=== PATIENT | male | born 1970 | race Caucasian/White ===

== ENCOUNTER 2020-02-06 18:21 | Inpatient (IN) | payer OTHER ==
[2020-02-06] MEDS ORDERED: DIPH,PERTUS(ACELL)TETVAC-LF 0.5 ML VIAL IM ONE (18:46)
[2020-02-06] MEDS: SODIUM CHLORIDE 0.9% 500 ML 500 ML IV STA ×2 (18:53→20:27)
[2020-02-06 18:56] LABS: Basophils # (A) 0.1 k/uL (0-0.2); Basophils % (A) 1 %; Eosinophils # (A) 0.1 k/uL (0-0.7); Eosinophils % (A) 1 %; HCT 48.5 % (39.0-53.0); HGB 15.8 gm/dL (13.0-17.5); Lymphocytes # (A) 1.9 k/uL (1.0-4.8); Lymphocytes % (A) 21 %; MCH 34.9 pg (25.0-35.0); MCHC 32.5 g/dL (31.0-37.0); MCV 107.4 fL (80.0-100.0); Macrocytosis Moderate; Mean Platelet Volume 7.8; Monocytes # (A) 0.5 k/uL (0-1.0); Monocytes % (A) 6 %; Neutrophils # (A) 6.4 k/uL (1.3-7.7); Neutrophils % (A) 70 %; Platelet Count 192 k/uL (150-450); RBC 4.52 m/uL (4.30-5.90); RDW 12.8 % (11.5-15.5); WBC 9.1 k/uL (3.8-10.6)
[2020-02-06 19:05] LABS: ALT 221 U/L (4-49); AST 684 U/L (17-59); African American GFR (CKD) >90 (>60 ml/min/1.73 sqM); Albumin 4.4 g/dL (3.5-5.0); Alkaline Phosphatase 93 U/L (38-126); Anion Gap 10 mmol/L; Blood Urea Nitrogen 9 mg/dL (9-20); Calcium 8.6 mg/dL (8.4-10.2); Carbon Dioxide 22 mmol/L (22-30); Chloride 101 mmol/L (98-107); Glucose 99 mg/dL (74-99); Non-African American GFR(CKD) >90 (>60 ml/min/1.73 sqM); Potassium 5.6 mmol/L (3.5-5.1); Sodium 133 mmol/L (137-145); Total Bilirubin 1.1 mg/dL (0.2-1.3); Total Protein 7.2 g/dL (6.3-8.2)
[2020-02-06 19:10] LABS: Partial Thromboplastin Time 22.5 sec (22.0-30.0); Prothrombin Time 10.6 sec (9.0-12.0)
[2020-02-06 19:13] LABS: Alcohol 269 mg/dL
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
[2020-02-06] MEDS ORDERED: MORPHINE SULFATE 4 MG/ML SYRINGE IV STA (20:11)
[2020-02-06] MEDS ORDERED: SODIUM CHLORIDE 0.9% 1,000 ML IV ONE (20:23)
[2020-02-06] MEDS ORDERED: fentaNYL (PF) 50 MCG/ML 2 ML AMP IVP STA ×2 (20:27)
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
[2020-02-06] MEDS ORDERED: THIAMINE 100 MG/ML 2 ML VIAL IM STA (20:46)
[2020-02-06] MEDS ORDERED: LORazepam 2 MG/ML INJ IV PRN (20:46)
[2020-02-06 20:59] LABS: Appearance,Urine Clear (Clear); Bacteria,Urine Rare /hpf; Bilirubin,Urine Negative (Negative); Blood,Urine Moderate (Negative); Color,Urine Light Yellow; Glucose,Urine (UA) Negative (Negative); Ketones,Urine Negative (Negative); Leukocyte Esterase,Urine Negative (Negative); Nitrite,Urine Negative (Negative); PH, Urine 6.5 (5.0-8.0); Protein,Urine 1+ (Negative); RBC,Urine <1 /hpf (0-5); Specific Gravity,Urine 1.024 (1.001-1.035); Squamous Epithelial Cell,Urine <1 /hpf (0-4); Urobilinogen,Urine <2.0 mg/dL (<2.0); WBC,Urine 1 /hpf (0-5)
[2020-02-06] MEDS ORDERED: NALOXONE 0.4 MG/ML 1 ML VIAL IV PRN (21:03)
[2020-02-06 21:07] LABS: Amphetamine Screen,Urine Not Detected (NotDetected); Barbiturate Screen,Urine Not Detected (NotDetected); Benzodiazepines Screen,Urine Detected (NotDetected); Cocaine Screen,Urine Not Detected (NotDetected); Methadone Screen, Urine Not Detected (NotDetected); Opiate Screen,Urine Not Detected (NotDetected); Oxycodone Screen, Urine Not Detected (NotDetected); Phencyclidine Screen,Urine Not Detected (NotDetected); Tricyclic Antidepressant,Urine Not Detected (NotDetected); Urn Cannabinoid Scrn Not Detected (NotDetected)
[2020-02-06] MEDS ORDERED: DEXAMETHASONE SOD PHOSPHATE 10 MG/ML 1 ML VIAL IV PRN (22:00)
[2020-02-06 22:21] LABS: Basophils # (A) 0.1 k/uL (0-0.2); Basophils % (A) 0 %; Eosinophils % (A) 0 %; HCT 40.6 % (39.0-53.0); HGB 13.2 gm/dL (13.0-17.5); Lymphocytes # (A) 0.8 k/uL (1.0-4.8); Lymphocytes % (A) 7 %; MCH 34.7 pg (25.0-35.0); MCHC 32.4 g/dL (31.0-37.0); MCV 107.3 fL (80.0-100.0); Macrocytosis Moderate; Mean Platelet Volume 7.2; Monocytes # (A) 0.7 k/uL (0-1.0); Monocytes % (A) 6 %; Neutrophils # (A) 10.2 k/uL (1.3-7.7); Neutrophils % (A) 86 %; Platelet Count 213 k/uL (150-450); RBC 3.79 m/uL (4.30-5.90); RDW 12.4 % (11.5-15.5)
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
[2020-02-06] MEDS: SODIUM CHLORIDE 0.9% 1,000 ML IV SCH (23:40)
[2020-02-06] MEDS: THIAMINE 100 MG TAB PO SCH (23:40)
[2020-02-07 00:57] LABS: Glucose,Whole Blood 91 mg/dL (75-99)
[2020-02-07] MEDS: methocarbamoL 750 MG TAB PO SCH ×4 (01:58→22:42)
[2020-02-07] MEDS: HYDROmorphone 0.5 MG/0.5 ML SYRINGE IVP PRN ×4 (01:59→12:57)
[2020-02-07] MEDS: ACETAMINOPHEN TAB 500 MG TAB PO SCH ×5 (02:01→22:42)
[2020-02-07] MEDS: SODIUM CHLORIDE 0.9% 1,000 ML IV SCH ×2 (05:59→22:42)
[2020-02-07 06:06] LABS: ALT 165 U/L (4-49); AST 447 U/L (17-59); African American GFR (CKD) >90 (>60 ml/min/1.73 sqM); Albumin 3.4 g/dL (3.5-5.0); Alkaline Phosphatase 74 U/L (38-126); Anion Gap 9 mmol/L; Blood Urea Nitrogen 8 mg/dL (9-20); Calcium 7.8 mg/dL (8.4-10.2); Carbon Dioxide 19 mmol/L (22-30); Chloride 107 mmol/L (98-107); Glucose 95 mg/dL (74-99); Non-African American GFR(CKD) >90 (>60 ml/min/1.73 sqM); Potassium 4.7 mmol/L (3.5-5.1); Sodium 135 mmol/L (137-145); Total Bilirubin 0.7 mg/dL (0.2-1.3); Total Protein 5.8 g/dL (6.3-8.2)
[2020-02-07 06:21] LABS: Basophils # (A) 0.1 k/uL (0-0.2); Basophils % (A) 1 %; Eosinophils # (A) 0.1 k/uL (0-0.7); Eosinophils % (A) 1 %; HCT 41.4 % (39.0-53.0); HGB 13.4 gm/dL (13.0-17.5); Lymphocytes # (A) 0.7 k/uL (1.0-4.8); Lymphocytes % (A) 7 %; MCH 34.7 pg (25.0-35.0); MCHC 32.3 g/dL (31.0-37.0); MCV 107.7 fL (80.0-100.0); Macrocytosis Moderate; Mean Platelet Volume 7.9; Monocytes # (A) 0.6 k/uL (0-1.0); Monocytes % (A) 6 %; Neutrophils # (A) 8.9 k/uL (1.3-7.7); Neutrophils % (A) 86 %; Platelet Count 166 k/uL (150-450); RBC 3.85 m/uL (4.30-5.90); RDW 12.3 % (11.5-15.5); WBC 10.4 k/uL (3.8-10.6)
[2020-02-07] MEDS ORDERED: VANCOMYCIN 1,000 MG in SODIUM CHLORIDE 0.9% 250 ML IVPB STA (07:20)
[2020-02-07 07:36] LABS: Glucose,Whole Blood 105 mg/dL (75-99)
--- NOTE | 2020-02-07 08:00 | XR ---
EXAMINATION TYPE: XR chest 1V DATE OF EXAM: 02/07/2020 COMPARISON: None INDICATION: Presurgical clearance TECHNIQUE: Single frontal view of the chest is obtained. FINDINGS: The heart size is normal. The pulmonary vasculature is normal. The lungs are clear. IMPRESSION: 1. No acute pulmonary process.
[2020-02-07 08:19] LABS: Basophils # (A) 0.1 k/uL (0-0.2); Basophils % (A) 1 %; Eosinophils % (A) 0 %; HCT 38.9 % (39.0-53.0); HGB 12.8 gm/dL (13.0-17.5); Lymphocytes # (A) 1.7 k/uL (1.0-4.8); Lymphocytes % (A) 20 %; MCH 35.8 pg (25.0-35.0); MCV 108.5 fL (80.0-100.0); Macrocytosis Moderate; Mean Platelet Volume 6.9; Monocytes # (A) 0.6 k/uL (0-1.0); Monocytes % (A) 7 %; Neutrophils # (A) 5.9 k/uL (1.3-7.7); Neutrophils % (A) 71 %; Platelet Count 193 k/uL (150-450); RBC 3.58 m/uL (4.30-5.90); RDW 12.8 % (11.5-15.5); WBC 8.3 k/uL (3.8-10.6)
[2020-02-07] MEDS: THIAMINE 100 MG TAB PO SCH ×2 (08:28→22:42)
[2020-02-07 08:29] LABS: African American GFR (CKD) >90 (>60 ml/min/1.73 sqM); Anion Gap 5 mmol/L; Blood Urea Nitrogen 8 mg/dL (9-20); Calcium 7.6 mg/dL (8.4-10.2); Carbon Dioxide 25 mmol/L (22-30); Chloride 104 mmol/L (98-107); Glucose 91 mg/dL (74-99); Non-African American GFR(CKD) >90 (>60 ml/min/1.73 sqM); Potassium 4.6 mmol/L (3.5-5.1); Sodium 134 mmol/L (137-145)
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
--- NOTE | 2020-02-07 11:24 | MR ---
EXAMINATION TYPE: MR lumbar spine wo con DATE OF EXAM: 02/07/2020 COMPARISON: CT 02/06/2020 HISTORY: L4 burst fracture TECHNIQUE: Multiplanar, multisequence images of the lumbar spine were acquired. L1-L2: There is endplate discogenic marrow signal change, spondylosis. Superior endplate of L2 shows minimal depression, there is associated low signal on T2-weighted sequences, intermediate signal on T 1. L2-L3: Normal disc appearance without desiccation. No herniation, protrusion or disc bulging. No ca nal stenosis is present. Foramina are patent bilaterally. L3-L4: Posterior extension of superior endplate of L4 into the spinal canal. No foraminal compromise. L4-L5: Normal disc appearance without desiccation. No herniation, protrusion or disc bulging. No ca nal stenosis is present. Foramina are patent bilaterally. L5-S1: Minimal posterior disc bulge, loss of disc height signal is present, there is mild spondylosis , no significant foraminal encroachment or spinal stenosis. Comminuted L4 vertebral burst fracture with retropulsion and resulting spinal stenosis is again ident ified as described on CT. L4 transverse process fractures are also again seen. Mass effect is noted o n the nerve roots at this level, conus shows an unremarkable appearance. Fracture extends into the re gion of the spinous process, a CT scan for improved bone detail. Increased signal on T2-weighted sequences present within the psoas muscles likely reflect edema. IMPRESSION: Burst fracture at L4 is noted on CT. Superior endplate fracture of L2 with minimal depression, no ret ropulsion. See report of CT scan. Mild degenerative disc disease. Additional findings above.
--- NOTE | 2020-02-07 12:31 | ECHOF ---
Referral Reason:elevated troponin MEASUREMENTS -------- HEIGHT: 170.2 cm WEIGHT: 73.0 kg BP: 112/72 RVIDd: 3.2 cm (< 3.3) IVSd: 1.1 cm (0.6 - 1.1) LVIDd: 3.8 cm (3.9 - 5.3) LVPWd: 1.3 cm (0.6 - 1.1) IVSs: 1.3 cm LVIDs: 2.3 cm LVPWs: 1.6 cm LAESV Index (A-L): 25.00 ml/m Ao Diam: 2.9 cm (2.0 - 3.7) AV Cusp: 2.0 cm (1.5 - 2.6) MV EXCURSION: 16.396 mm (> 18.000) MV EF SLOPE: 147 mm/s (70 - 150) EPSS: 0.3 cm MV E Bacilio: 0.65 m/s MV DecT: 327 ms MV A Bacilio: 0.78 m/s MV E/A Ratio: 0.83 RAP: 5.00 mmHg RVSP: 41.99 mmHg FINDINGS -------- This was a technically good study. The left ventricular size is normal. There is borderline concentric left ventricular hypertrophy. Overall left ventricular systolic function is normal with, an EF between 55 - 60 %. The diastolic filling pattern is normal for the age of the patient 7.63. The right ventricle is normal in size. Normal LA size by volume 22+/-6 ml/m2. The right atrial size is normal. Interatrial and interventricular septum intact. There is no evidence of aortic regurgitation. There is no evidence of aortic stenosis. No mitral regurgitation. [id number] tricuspid regurgitation present. There is mild to moderate pulmonary hypertension. The right ventricular systolic pressure, as measured by Doppler, is 41.99mmHg. There is no pulmonic regurgitation present. The aortic root size is normal. Normal inferior vena cava with normal inspiratory collapse consistent with estimated right atrial pre ssure of 5 mmHg. There is no pericardial effusion. CONCLUSIONS -------- 1. The left ventricular size is normal. 2. There is borderline concentric left ventricular hypertrophy. 3. Overall left ventricular systolic function is normal with, an EF between 55 - 60 %. 4. The diastolic filling pattern is normal for the age of the patient 7.63 5. [id number] tricuspid regurgitation present. 6. There is mild to moderate pulmonary hypertension. 7. The right ventricular systolic pressure, as measured by Doppler, is 41.99mmHg. ENGROSSER: Rupinder Kaur RDCS
[2020-02-07] MEDS ORDERED: HYDROmorphone (PF) 1 MG/ML ONE (13:53)
[2020-02-07] MEDS ORDERED: HEPARIN SODIUM,PORCINE 10,000 UNIT/ML 1 ML VIAL ONE (13:53)
[2020-02-07] MEDS ORDERED: PROPOFOL 10 MG/ML 20 ML VIAL IV ONE (13:53)
[2020-02-07] MEDS ORDERED: SUCCINYLCHOLINE CHLORIDE VIAL 200 MG/10 ML VIAL IV ONE (13:53)
[2020-02-07] MEDS ORDERED: KETAMINE 10 MG/ML 20 ML VIAL ONE (13:53)
[2020-02-07] MEDS ORDERED: SODIUM CHLORIDE 0.9% 100 ML BAG ONE (13:53)
[2020-02-07] MEDS ORDERED: LIDOCAINE 1% INJ 10MG/ML (20 ML MDV) ONE (13:53)
[2020-02-07] MEDS ORDERED: MIDAZOLAM 2 MG/2 ML VIAL ONE (13:53)
[2020-02-07] MEDS ORDERED: SODIUM CHLORIDE 0.9% IRRIG 1,000 ML BTL IRRIGATION ONE (13:53)
[2020-02-07] MEDS ORDERED: TRANEXAMIC ACID 1,000 MG/10 ML VIAL ONE (13:53)
[2020-02-07] MEDS ORDERED: fentaNYL (PF) 50 MCG/ML 2 ML AMP ONE (13:53)
[2020-02-07] MEDS ORDERED: ROCURONIUM BROMIDE 10 MG/ML 5 ML VIAL IV ONE (13:53)
[2020-02-07] MEDS ORDERED: NEOSTIGMINE 1 MG/ML 10 ML VIAL ONE (13:53)
[2020-02-07] MEDS ORDERED: GLYCOPYRROLATE 0.2 MG/ML 2 ML VIAL ONE (13:53)
[2020-02-07] MEDS ORDERED: IV FLUID CONTINUATION 1,000 ML IV ONE (13:58)
[2020-02-07] MEDS ORDERED: TRANEXAMIC ACID 1,000 MG in SODIUM CHLORIDE 0.9% 100 ML IVPB ONE ×2 (14:20→14:21)
--- NOTE | 2020-02-07 14:23 | P.ANPRN ---
Procedure Note - Anesthesia - Invasive Line Right Central Line Time Out Performed: Yes Date of Procedure: 02/07/20 Time of Procedure: 13:05 (ICU) Preparation: Sterile Prep, Sterile Dressing Ultrasound Used: Yes Purpose - Visualization and Identification of Vasculature: Yes Image Stored and Saved: Yes Narrative: Central line placement per sterile protocol utilized.
--- NOTE | 2020-02-07 14:24 | P.ANPRN ---
Procedure Note - Anesthesia - Invasive Line Right Arterial Line Time Out Performed: Yes Date of Procedure: 02/07/20 Time of Procedure: 13:20 (ICU) Preparation: Sterile Prep, Sterile Dressing Arterial Line Location: Radial Ultrasound Used: Yes Purpose - Visualization and Identification of Vasculature: Yes Image Stored and Saved: Yes Narrative: Central line placement per sterile protocol utilized.
[2020-02-07] MEDS ORDERED: LACTATED RINGERS 1,000 ML IV ONE ×3 (14:44→17:55)
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
[2020-02-07] MEDS ORDERED: THROMBIN (BOVINE) 5,000 UNIT VIAL TOPICAL ONE (15:09)
[2020-02-07] MEDS ORDERED: BUPIVACAINE (PF) 0.25% 30 ML VIAL SQ ONE (15:09)
[2020-02-07] MEDS ORDERED: GELATIN SPONGE,ABSORB (LARGE) 1 EACH SPONGE TOPICAL ONE (15:10)
--- NOTE | 2020-02-07 15:24 | P.PN ---
Progress Note - Text Patient was in the OR for a long period of time will revisit for evaluation tomorrow
[2020-02-07] MEDS ORDERED: VANCOMYCIN 1,000 MG VIAL MISCELLANE ONE (19:13)
[2020-02-07] MEDS ORDERED: ONDANSETRON 4 MG/2 ML VIAL IVP ONE (19:34)
[2020-02-07] MEDS ORDERED: SENNOSIDES 8.6 MG TAB PO PRN (19:39)
--- NOTE | 2020-02-07 19:48 | XR ---
EXAMINATION TYPE: XR lumbar spine 2 or 3V DATE OF EXAM: 02/07/2020 COMPARISON: NONE HISTORY: Surgery TECHNIQUE: 7 views FINDINGS: A series of 7 fluoroscopic images of the lumbar spine show placement of rods and screws fus ing posteriorly lumbar spine from L2 to S1. There is comminuted burst fracture of the L4 vertebral lino dy. IMPRESSION: Posterior multilevel fusion surgery. No complicating process seen.
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
[2020-02-07] MEDS: HYDROmorphone 2 MG/ML 1 ML SYRINGE IVP ONE ×2 (20:00→20:09)
--- NOTE | 2020-02-07 20:11 | P.PN ---
Progress Note - Text Progress Note Date: 02/07/20 Patient was seen and examined in the postoperative care unit. He was awake and following commands. He was moving all 4 extremities with good strength. Patient has 5 out of 5 strength in plantar flexion, dorsiflexion, EHL, FHL. He has 3+ strength 5 of knee flexion and extension secondary to pain. He has 3+ to 4 minus strength in hip flexion bilaterally. He states sensation is intact to light touch. Vital signs pulse 87, blood pressure 165/64, pulse ox 95% on nonrebreather 2 L. Patient will return to the ICU. Once awake and stable per the anesthesia department evaluation.
[2020-02-07] MEDS: HYDROmorphone 1 MG/ML 1 ML SYRINGE IVP PRN (22:44)
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
[2020-02-07] MEDS: DEXAMETHASONE SOD PHOSPHATE 4 MG/ML 1 ML VIAL IV SCH (22:55)
--- NOTE | 2020-02-07 23:10 | CT ---
EXAMINATION TYPE: CT lumbar spine wo con DATE OF EXAM: 02/07/2020 COMPARISON: 02/06/2020 HISTORY: post-op lumbar sx CT DLP: 1266.6 mGycm Automated exposure control for dose reduction was used. Images were obtained from the level of T11-S3 vertebra without contrast. Vertebra have normal alignment. There is posterior fusion surgery from L2 to L5. There are posterior skin faby. There is burst fracture of the L4 vertebral body with fragment extension posteriorly in to the spinal canal. There is laminectomy defect of L4. The sacroiliac joints appear intact. There is 25% compression deformity of the comminuted L4 vertebral body fracture. There is bilateral fluid in the retroperitoneal pararenal space. There is no retroperitoneal adenopathy. IMPRESSION: Posterior fusion surgery. No complicating process seen of the spine. Laminectomy defect. Posterior fr agment extension into the spinal canal up to 11 mm. Unchanged. Retroperitoneal bilateral fluid consistent with some retroperitoneal hemorrhage that appears new comp ared to CT scan yesterday..
[2020-02-07] MEDS: LORazepam 2 MG/ML INJ IV PRN (23:43)
[2020-02-08] MEDS: DEXAMETHASONE SOD PHOSPHATE 4 MG/ML 1 ML VIAL IV SCH ×4 (01:35→20:27)
[2020-02-08] MEDS: HYDROmorphone 1 MG/ML 1 ML SYRINGE IVP PRN ×5 (02:11→20:27)
[2020-02-08] MEDS ORDERED: ACETAMINOPHEN TAB 500 MG TAB PO PRN (04:55)
[2020-02-08 05:01] LABS: Basophils % (A) 0 %; Eosinophils % (A) 0 %; HCT 37.2 % (39.0-53.0); HGB 12.1 gm/dL (13.0-17.5); Lymphocytes # (A) 0.5 k/uL (1.0-4.8); Lymphocytes % (A) 5 %; MCH 34.4 pg (25.0-35.0); MCHC 32.5 g/dL (31.0-37.0); MCV 105.7 fL (80.0-100.0); Macrocytosis Moderate; Mean Platelet Volume 7.8; Monocytes # (A) 0.5 k/uL (0-1.0); Monocytes % (A) 6 %; Neutrophils % (A) 88 %; Platelet Count 135 k/uL (150-450); RBC 3.52 m/uL (4.30-5.90); RDW 15.1 % (11.5-15.5); WBC 9.1 k/uL (3.8-10.6)
[2020-02-08] MEDS: SODIUM CHLORIDE 0.9% 1,000 ML IV SCH ×3 (05:01→20:33)
[2020-02-08] MEDS: LORazepam 2 MG/ML INJ IV PRN ×2 (05:08→21:47)
[2020-02-08 05:14] LABS: African American GFR (CKD) >90 (>60 ml/min/1.73 sqM); Anion Gap -1 mmol/L; Blood Urea Nitrogen 6 mg/dL (9-20); Calcium 7.2 mg/dL (8.4-10.2); Carbon Dioxide 27 mmol/L (22-30); Chloride 106 mmol/L (98-107); Glucose 133 mg/dL (74-99); Non-African American GFR(CKD) >90 (>60 ml/min/1.73 sqM); Potassium 4.2 mmol/L (3.5-5.1); Sodium 132 mmol/L (137-145)
[2020-02-08] MEDS: THIAMINE 100 MG TAB PO SCH ×2 (06:58→15:13)
[2020-02-08] MEDS: NICOTINE 21MG/24HR PATCH TRANSDERM SCH (06:58)
[2020-02-08] MEDS: polyethylene glycoL 3350 17 GM POWD.PACK PO SCH ×2 (08:53→08:54)
[2020-02-08] MEDS: methocarbamoL 750 MG TAB PO SCH ×3 (08:53→20:27)
--- NOTE | 2020-02-08 10:15 | P.PN ---
Progress Note - Text Progress Note Date: 02/08/20 S: Patient seen and examined this morning. He is awake and alert and doing fairly well. He attempted to get up earlier this morning, but was having quite a bit of pain and was only able to mildly dangle his legs at the bedside. He states he is feeling better in his legs. However. He states his back is sore. He denies any numbness or tingling that is new. He denies any perineal numbness or tingling. He can still feel the Salcido in place. He denies any fevers, chills shortness of breath or chest pain at this time. Vital signs: Are stable. Patient is afebrile General: Patient is alert and oriented and able to answer all questions appropriately. Motor exam: Patient has 5 over 5 strength in dorsiflexion, plantar flexion, EHL and FHL bilaterally. He has 3+ to 4 minus strength in knee flexion and extension bilaterally. He has 3+ over 5 strength in hip flexion bilaterally. Sensation is intact to light touch in the L2 to S1 nerve distribution He has palpable distal pulses. No edema. Incision: Incision is clean, dry and intact. Dressing is intact and drain is intact. Drain: 150 mL overnight Laboratory Results - Last 24 Hours 02/06/20 02/07/20 02/07/20 18:51 09:47 09:47 WBC RBC Hgb Hct MCV MCH MCHC RDW Plt Count Neutrophils % Lymphocytes % Monocytes % Eosinophils % Basophils % Neutrophils # Lymphocytes # Monocytes # Eosinophils # Basophils # Macrocytosis Sodium Potassium Chloride Carbon Dioxide Anion Gap BUN Creatinine Est GFR (CKD-EPI)AfAm Est GFR (CKD-EPI)NonAf Glucose Calcium Troponin I 0.043 H* Serum Alcohol <10 Blood Type O Positive Blood Type Recheck No Previous Record Bld Type Recheck Status CABO Indicated Antibody Screen NEGATIVE Crossmatch See Detail Spec Expiration Date 02/09/2020 - 234902/08/20 02/08/20 04:43 04:43 WBC 9.1 RBC 3.52 L Hgb 12.1 L Hct 37.2 L MCV 105.7 H MCH 34.4 MCHC 32.5 RDW 15.1 Plt Count 135 L Neutrophils % 88 Lymphocytes % 5 Monocytes % 6 Eosinophils % 0 Basophils % 0 Neutrophils # 8.0 H Lymphocytes # 0.5 L Monocytes # 0.5 Eosinophils # 0.0 Basophils # 0.0 Macrocytosis Moderate Sodium 132 L Potassium 4.2 Chloride 106 Carbon Dioxide 27 Anion Gap -1 BUN 6 L Creatinine 0.72 Est GFR (CKD-EPI)AfAm >90 Est GFR (CKD-EPI)NonAf >90 Glucose 133 H Calcium 7.2 L Troponin I Serum Alcohol Blood Type Blood Type Recheck Bld Type Recheck Status Antibody Screen Crossmatch Spec Expiration Date Vital Signs Temp 98.1 F 02/08/20 08:00 Pulse 101 H 02/08/20 09:00 Resp 14 02/08/20 09:00 BP 115/88 02/08/20 07:00 Pulse Ox 95 02/08/20 09:00 Intake & Output 02/07/20 02/08/20 02/08/20 18:59 06:59 18:59 Intake Total 3760 1437 309 Output Total 1760 1495 260 Balance 1999 49 Weight 77.6 kg Intake: IV 3450 1127 309 Sodium Chloride 0.9% 1, 700 900 300 000 ml @ 100 mls/hr IV . Q10H [facility] Rx#:[id number] Vancomycin 1,000 mg In 250 Sodium Chloride 0.9% 250 ml @ 250 mls/hr IVPB ONCE [facility] Rx#:[id number] pressure bag 27 9 Blood Product 310 310 Rc As-1 Unit 310 [id number] Rc As-1 Unit 310 [id number] Output: Drainage 150 60 Back 150 60 Urine 560 1265 200 Estimated Blood Loss 1200 80 Other: Voiding Method Indwelling Catheter Indwelling Catheter ABP, PAP, CO, CI - Last Documented Arterial Blood Pressure 127/72 RADIOGRAPHS: CT of the lumbar spine. Postoperatively his obtained and reviewed. All hardware is in good position. Decompression had been performed from L3 to L5. Partial L4 corpectomy is visible. There is good decompression of the thecal elements and spinal nerve roots with note tensioning on the cord remaining. No hematoma noted. See radiologic report. Impression: 49-year-old male postop day 1, status post L2 to S1 posterior lateral fusion with L3 to 5 decompression and partial L4 cart corpectomy secondary to L4 burst fracture, unstable Plan: 1. Aggressive ambulation protocol 2. Pain control 3. GI ppx 4. Start SQ heparin today 5. maintain drain 6. Trend labs, no need for transfusion at this time 7. Appreciate ICU management 8. PT/OT, goals for all meals out of bed and ambulation with assist. TLSO needed for ambulation 9. TEDs, SCDs 10. Diet as tolerated 11. No plans for further operative intervention at this time. Pt likely to need KRISTAL closer to home will await PT and OT recommendations.
--- NOTE | 2020-02-08 10:18 | FL ---
EXAMINATION TYPE: FL guidance operating room DATE OF EXAM: 02/07/2020 CLINICAL HISTORY: Low back pain. TECHNIQUE: Fluoroscopy. COMPARISON: MRI lumbar spine earlier in day. FINDINGS: Fluoroscopic guidance was provided during lumbar posterolateral decompression and fusion L 2-S1 procedure performed by Dr. Penn. A total of 2.41 minutes of fluoroscopic time was utilize d during the procedure and 7 spot intraoperative images are acquired. IMPRESSION: As Above.
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
[2020-02-08] MEDS: HEPARIN SODIUM,PORCINE 5,000 UNIT/ML 1 ML VIAL SQ SCH (15:13)
[2020-02-09] MEDS: HYDROmorphone 1 MG/ML 1 ML SYRINGE IVP PRN ×6 (00:25→23:08)
[2020-02-09] MEDS: LORazepam 2 MG/ML INJ IV PRN ×13 (00:25→23:08)
[2020-02-09] MEDS: DEXAMETHASONE SOD PHOSPHATE 4 MG/ML 1 ML VIAL IV SCH ×4 (03:19→20:19)
[2020-02-09] MEDS: HEPARIN SODIUM,PORCINE 5,000 UNIT/ML 1 ML VIAL SQ SCH ×2 (03:19→15:38)
[2020-02-09 06:26] LABS: Basophils % (A) 0 %; Eosinophils # (A) 0.1 k/uL (0-0.7); Eosinophils % (A) 1 %; HCT 31.7 % (39.0-53.0); HGB 10.6 gm/dL (13.0-17.5); Lymphocytes # (A) 0.7 k/uL (1.0-4.8); Lymphocytes % (A) 7 %; MCH 34.8 pg (25.0-35.0); MCHC 33.5 g/dL (31.0-37.0); MCV 103.7 fL (80.0-100.0); Macrocytosis Slight; Mean Platelet Volume 7.6; Monocytes # (A) 0.5 k/uL (0-1.0); Monocytes % (A) 5 %; Neutrophils # (A) 8.6 k/uL (1.3-7.7); Neutrophils % (A) 86 %; Platelet Count 130 k/uL (150-450); RBC 3.06 m/uL (4.30-5.90); RDW 14.3 % (11.5-15.5)
[2020-02-09 06:35] LABS: African American GFR (CKD) >90 (>60 ml/min/1.73 sqM); Anion Gap 2 mmol/L; Blood Urea Nitrogen 3 mg/dL (9-20); Carbon Dioxide 27 mmol/L (22-30); Chloride 104 mmol/L (98-107); Glucose 137 mg/dL (74-99); Non-African American GFR(CKD) >90 (>60 ml/min/1.73 sqM); Potassium 3.7 mmol/L (3.5-5.1); Sodium 133 mmol/L (137-145)
[2020-02-09] MEDS ORDERED: POTASSIUM CHLORIDE ER 20 MEQ TAB.ER PO SCH (07:00)
[2020-02-09] MEDS: NICOTINE 21MG/24HR PATCH TRANSDERM SCH (07:48)
[2020-02-09] MEDS: THIAMINE 100 MG TAB PO SCH ×2 (07:48→16:40)
[2020-02-09] MEDS: SODIUM CHLORIDE 0.9% 1,000 ML IV SCH ×2 (07:49→20:12)
[2020-02-09] MEDS: methocarbamoL 750 MG TAB PO SCH ×3 (07:49→20:19)
[2020-02-09] MEDS: polyethylene glycoL 3350 17 GM POWD.PACK PO SCH (07:49)
--- NOTE | 2020-02-09 08:28 | P.PN ---
Progress Note - Text Progress Note Date: 02/09/20 S: Patient seen and examined this morning is doing very well. He states he does have some pain in his back. The patient sustained a fall from standing that was witnessed in his room when he was up and about. By the nurse at 6 AM this morning he fell directly onto his buttock region. He states that his legs just became wobbly and he fell. He denies any increasing pain in his legs. He denies any new numbness, tingling or weakness. He states his legs are actually moving better today than they have been. He denies any changes in his bowel or bladder control. The patient still has a Salcido which will be DC'd today. We will obtain x-rays of his lumbar spine and AP and lateral, to evaluate for need of CT. O: General: Patient is alert and oriented and able to answer all questions appropriately. Motor exam: Patient has 5 over 5 strength in dorsiflexion, plantar flexion, EHL and FHL bilaterally. He has 3+ to 4 minus strength in knee flexion and extension bilaterally. He has 4- over 5 strength in hip flexion bilaterally. Sensation is intact to light touch in the L2 to S1 nerve distribution He has palpable distal pulses. No edema. Incision: Incision is clean, dry and intact. Dressing is intact and drain is intact. Drain: 270 cc in 24 hrs. Vital Signs - 24 hr 02/08/20 02/08/20 02/08/20 09:00 10:00 11:00 Temperature Pulse Rate 101 H 101 H 98 Respiratory 14 15 18 Rate Blood Pressure 113/74 O2 Sat by Pulse 95 97 95 Oximetry 02/08/20 02/08/20 02/08/20 12:00 13:00 14:00 Temperature 98.2 F Pulse Rate 104 H 101 H 101 H Respiratory 12 14 13 Rate Blood Pressure 116/79 125/86 119/79 O2 Sat by Pulse 93 L 94 L 93 L Oximetry 02/08/20 02/08/20 02/08/20 15:00 16:00 17:00 Temperature Pulse Rate 82 84 74 Respiratory 19 16 15 Rate Blood Pressure 111/80 118/83 116/85 O2 Sat by Pulse 93 L 97 98 Oximetry 02/08/20 02/08/20 02/08/20 20:00 21:00 22:00 Temperature 98.1 F Pulse Rate 78 80 87 Respiratory 17 17 17 Rate Blood Pressure 130/93 116/82 113/85 O2 Sat by Pulse 94 L 94 L 93 L Oximetry 02/08/20 02/08/20 02/09/20 23:00 23:11 00:00 Temperature 97.4 F L Pulse Rate 85 89 92 Respiratory 11 L 18 8 L Rate Blood Pressure 121/82 108/71 108/71 O2 Sat by Pulse 92 L 93 L 94 L Oximetry 02/09/20 02/09/20 02/09/20 01:00 02:00 03:00 Temperature Pulse Rate 75 84 82 Respiratory 6 L 10 L 17 Rate Blood Pressure 127/88 127/84 127/85 O2 Sat by Pulse 93 L 95 94 L Oximetry 02/09/20 02/09/20 02/09/20 04:00 05:00 06:00 Temperature 97.4 F L Pulse Rate 90 82 101 H Respiratory 17 10 L 28 H Rate Blood Pressure 129/89 106/57 108/66 O2 Sat by Pulse 89 L 91 L 95 Oximetry 02/09/20 07:00 Temperature Pulse Rate 86 Respiratory 12 Rate Blood Pressure 141/92 O2 Sat by Pulse 95 Oximetry Abnormal Lab Results 02/09/20 02/09/20 06:06 06:06 WBC 10.0 RBC 3.06 L Hgb 10.6 L Hct 31.7 L MCV 103.7 H MCH 34.8 MCHC 33.5 RDW 14.3 Plt Count 130 L Neutrophils % 86 Lymphocytes % 7 Monocytes % 5 Eosinophils % 1 Basophils % 0 Neutrophils # 8.6 H Lymphocytes # 0.7 L Monocytes # 0.5 Eosinophils # 0.1 Basophils # 0.0 Macrocytosis Slight Sodium 133 L Potassium 3.7 Chloride 104 Carbon Dioxide 27 Anion Gap 2 BUN 3 L Creatinine 0.64 L Est GFR (CKD-EPI)AfAm >90 Est GFR (CKD-EPI)NonAf >90 Glucose 137 H Calcium 8.0 L RADIOGRAPHS: XR of lumbar spine pending Impression: 49-year-old male postop day 2, status post L2 to S1 posterior lateral fusion with L3 to 5 decompression and partial L4 cart corpectomy secondary to L4 burst fracture, unstable Plan: 1. Aggressive ambulation protocol 2. Pain control 3. GI ppx 4. XR lumbar spine due to fall 5. maintain drain 6. Trend labs, no need for transfusion at this time 7. Appreciate ICU management 8. PT/OT, goals for all meals out of bed and ambulation with assist. TLSO needed for ambulation 9. TEDs, SCDs 10. Diet as tolerated 11. No plans for further operative intervention at this time. Pt likely to need KRISTAL closer to home will await PT and OT recommendations.
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
--- NOTE | 2020-02-09 11:10 | CT ---
EXAMINATION TYPE: CT lumbar spine wo con DATE OF EXAM: 02/09/2020 COMPARISON: Prior CT 02/07/2020 HISTORY: Fall Post Lumbar fusion pain CT DLP: 1060.6 mGycm Automated exposure control for dose reduction was used. An unenhanced CT of the lumbar spine was performed. Bone and soft tissue window settings are submitt ed as well as coronal and sagittal reconstructions. FINDINGS: There is no significant interval change. Patient is status post posterior fusion L2-S1, there is a bu rst fracture of L4 with retropulsed bone fragments as on prior exam. Superior endplate of L2 shows mi ld depression as on prior. Alignment is stable. Anterior cortex at S1 is mildly reduced by the transp edicular screws anteriorly. Graft material is present in the paraspinal locations posteriorly. Transv erse process fractures are stable at L4, L3, L2. Probable osteophyte laterally at L3 is mildly displa jania similar to prior exam, probable fracture. Multilevel laminectomies are present. There is an indwelling drain to the right of midline posteriorl y as on prior. Air is present within the surgical bed and is somewhat improved. Artifact is present d ue to the metallic hardware. There is some small amount of intra-abdominal hemorrhage noted as on sony or. Surgical faby are present along the skin. Within the subcutaneous fat there is some subcutaneo us emphysema with a small amount of fluid density likely postop seroma or ecchymosis. Small basilar e ffusions are present with associated atelectasis. IMPRESSION: Essentially stable findings, no acute fracture or subluxation
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
[2020-02-09] MEDS: HYDROmorphone 0.5 MG/0.5 ML SYRINGE IVP PRN (20:19)
[2020-02-09] MEDS ORDERED: HALOPERIDOL LACTATE 5 MG/ML 1 ML VIAL IVP PRN (23:55)
[2020-02-10] MEDS: LORazepam 2 MG/ML INJ IV PRN ×3 (00:05→03:32)
[2020-02-10] MEDS: DEXAMETHASONE SOD PHOSPHATE 4 MG/ML 1 ML VIAL IV SCH ×4 (02:07→20:26)
[2020-02-10] MEDS: SODIUM CHLORIDE 0.9% 1,000 ML IV SCH ×2 (02:08→16:07)
[2020-02-10] MEDS: HYDROmorphone 1 MG/ML 1 ML SYRINGE IVP PRN ×3 (03:23→18:32)
[2020-02-10] MEDS: HEPARIN SODIUM,PORCINE 5,000 UNIT/ML 1 ML VIAL SQ SCH ×2 (03:32→16:05)
[2020-02-10 05:12] LABS: Basophils % (A) 0 %; Eosinophils % (A) 0 %; HCT 28.7 % (39.0-53.0); HGB 9.8 gm/dL (13.0-17.5); Lymphocytes # (A) 0.7 k/uL (1.0-4.8); Lymphocytes % (A) 7 %; MCH 35.2 pg (25.0-35.0); MCV 103.5 fL (80.0-100.0); Macrocytosis Slight; Mean Platelet Volume 9.2; Monocytes # (A) 0.6 k/uL (0-1.0); Monocytes % (A) 6 %; Neutrophils # (A) 8.5 k/uL (1.3-7.7); Neutrophils % (A) 86 %; Platelet Count 169 k/uL (150-450); RBC 2.78 m/uL (4.30-5.90); RDW 14.4 % (11.5-15.5); WBC 9.9 k/uL (3.8-10.6)
[2020-02-10 05:31] LABS: African American GFR (CKD) >90 (>60 ml/min/1.73 sqM); Anion Gap 1 mmol/L; Blood Urea Nitrogen 6 mg/dL (9-20); Carbon Dioxide 29 mmol/L (22-30); Chloride 105 mmol/L (98-107); Glucose 118 mg/dL (74-99); Non-African American GFR(CKD) >90 (>60 ml/min/1.73 sqM); Potassium 3.6 mmol/L (3.5-5.1); Sodium 135 mmol/L (137-145)
[2020-02-10] MEDS ORDERED: Potassium Replacement Protocol 1 EACH MISC MISCELLANE PRN (05:32)
[2020-02-10] MEDS ORDERED: POTASSIUM CHLORIDE ER 20 MEQ TAB.ER PO SCH (06:00)
[2020-02-10] MEDS: THIAMINE 100 MG TAB PO SCH ×2 (06:06→18:32)
[2020-02-10] MEDS: NICOTINE 21MG/24HR PATCH TRANSDERM SCH (08:04)
[2020-02-10] MEDS: methocarbamoL 750 MG TAB PO SCH ×3 (08:04→20:26)
[2020-02-10] MEDS: polyethylene glycoL 3350 17 GM POWD.PACK PO SCH (08:05)
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
[2020-02-10] MEDS: HYDROmorphone 0.5 MG/0.5 ML SYRINGE IVP PRN (21:40)
[2020-02-11] MEDS: HYDROmorphone 1 MG/ML 1 ML SYRINGE IVP PRN (00:43)
[2020-02-11] MEDS: SODIUM CHLORIDE 0.9% 1,000 ML IV SCH ×2 (01:52→11:00)
[2020-02-11] MEDS: DEXAMETHASONE SOD PHOSPHATE 4 MG/ML 1 ML VIAL IV SCH ×4 (01:52→20:26)
[2020-02-11] MEDS: HEPARIN SODIUM,PORCINE 5,000 UNIT/ML 1 ML VIAL SQ SCH ×2 (03:38→17:03)
[2020-02-11] MEDS: THIAMINE 100 MG TAB PO SCH ×2 (07:06→17:03)
[2020-02-11 07:21] LABS: Basophils % (A) 0 %; Eosinophils % (A) 0 %; HCT 35.4 % (39.0-53.0); HGB 11.6 gm/dL (13.0-17.5); Lymphocytes # (A) 1.1 k/uL (1.0-4.8); Lymphocytes % (A) 12 %; MCH 34.2 pg (25.0-35.0); MCHC 32.9 g/dL (31.0-37.0); MCV 103.9 fL (80.0-100.0); Macrocytosis Slight; Mean Platelet Volume 7.6; Monocytes # (A) 0.6 k/uL (0-1.0); Monocytes % (A) 7 %; Neutrophils # (A) 7.6 k/uL (1.3-7.7); Neutrophils % (A) 80 %; Platelet Count 238 k/uL (150-450); RDW 13.8 % (11.5-15.5); WBC 9.5 k/uL (3.8-10.6)
[2020-02-11 07:27] LABS: ALT 60 U/L (4-49); AST 60 U/L (17-59); African American GFR (CKD) >90 (>60 ml/min/1.73 sqM); Albumin 3.5 g/dL (3.5-5.0); Alkaline Phosphatase 81 U/L (38-126); Anion Gap 5 mmol/L; Blood Urea Nitrogen 10 mg/dL (9-20); Calcium 8.7 mg/dL (8.4-10.2); Carbon Dioxide 26 mmol/L (22-30); Chloride 104 mmol/L (98-107); Glucose 115 mg/dL (74-99); Non-African American GFR(CKD) >90 (>60 ml/min/1.73 sqM); Potassium 3.7 mmol/L (3.5-5.1); Sodium 135 mmol/L (137-145); Total Bilirubin 0.8 mg/dL (0.2-1.3)
[2020-02-11] MEDS: NICOTINE 21MG/24HR PATCH TRANSDERM SCH (07:59)
[2020-02-11] MEDS: polyethylene glycoL 3350 17 GM POWD.PACK PO SCH (08:00)
[2020-02-11] MEDS: methocarbamoL 750 MG TAB PO SCH ×3 (08:05→21:46)
--- NOTE | 2020-02-11 09:09 | P.PN ---
Subjective Progress Note Date: 02/11/20 Principal diagnosis: L4 Burst Fx Patient seen and examined this morning, seems more lucid than he was previously. She was sitting up in his chair and doing well with this. The patient has been up to the bathroom. States he has been walking with a walker using his TLSO doing fairly well. He states that his legs feel better as well today than they have in the past. [place]cido is out. He denies any bowel or bladder incontinence. States she is able to urinate and have a bowel movement on his own. He denies any fevers, chills shortness of breath or chest pain at this time. Objective - Vital Signs Vital signs: Vital Signs Temp 97.9 F 02/11/20 08:00 Pulse 69 02/11/20 08:00 Resp 16 02/11/20 08:00 BP 151/99 02/11/20 08:00 Pulse Ox 93 L 02/11/20 08:00 Intake & Output 02/10/20 02/11/20 02/11/20 18:59 06:59 18:59 Intake Total 2300 1100 200 Output Total 1735 940 Balance 565 160 200 Weight 72.8 kg Intake: IV 1300 1100 200 Sodium Chloride 0.9% 1, 1300 1100 200 000 ml @ 100 mls/hr IV . Q10H [facility] Rx#:[id number] Oral 1000 Output: Drainage 60 40 Back 60 40 Urine 1675 900 Other: Voiding Method Urinal Urinal # Voids 1 # Bowel Movements 1 ABP, PAP, CO, CI - Last Documented Arterial Blood Pressure 111/60 - Exam Vital signs stable. See below Alert and oriented 3, appears well-nourished, well-hydrated is in no acute distress Negative Babinski's No clonus Negative Alize's 5\5 strength in dorsiflexion, plantar flexion, EHL, FHL, the right lower extremity and left lower extremity 4/5 motor strength in hip flexion bilaterally Sensation intact to light touch and pain and L2 S1 nerve distribution Incision is clean and dry. Drain is in place. Minimal output No edema. Negative Ruth's - Labs CBC & Chem 7: 02/11/20 06:47 02/11/20 06:47 Labs: Abnormal Lab Results - Last 24 Hours (Table) 02/11/20 02/11/20 Range/Units 06:47 06:47 RBC 3.40 L (4.30-5.90) m/uL Hgb 11.6 L (13.0-17.5) gm/dL Hct 35.4 L (39.0-53.0) % MCV 103.9 H (80.0-100.0) fL Sodium 135 L (137-145) mmol/L Glucose 115 H (74-99) mg/dL AST 60 H (17-59) U/L ALT 60 H (4-49) U/L Total Protein 6.0 L (6.3-8.2) g/dL Assessment and Plan Assessment: Impression: 49-year-old male postop day 4, status post L2 to S1 posterior lateral fusion with L3 to 5 decompression and partial L4 cart corpectomy secondary to L4 burst fracture, unstable Plan: Plan: 1. Aggressive ambulation protocol 2. Pain control 3. GI ppx 4. DC drain today 5. Appreciate ICU management, pt suffering DTs 6. PT/OT, goals for all meals out of bed and ambulation with assist. TLSO needed for ambulation 7. TEDs, SCDs 8. Diet as tolerated 9. KRISTAL vs home when stable.
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
[2020-02-11] MEDS: ACETAMINOPHEN TAB 500 MG TAB PO SCH (19:12)
[2020-02-12] MEDS: HEPARIN SODIUM,PORCINE 5,000 UNIT/ML 1 ML VIAL SQ SCH (02:57)
[2020-02-12] MEDS: DEXAMETHASONE SOD PHOSPHATE 4 MG/ML 1 ML VIAL IV SCH ×2 (02:57→08:15)
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
[2020-02-12] MEDS: THIAMINE 100 MG TAB PO SCH (08:16)
[2020-02-12] MEDS: methocarbamoL 750 MG TAB PO SCH (08:16)
[2020-02-12] MEDS: polyethylene glycoL 3350 17 GM POWD.PACK PO SCH (08:16)
[2020-02-12] MEDS: NICOTINE 21MG/24HR PATCH TRANSDERM SCH (08:16)
[2020-02-12 11:30] VITALS: BP 133/77; PULSE 74; RESP 20; TEMP 98.2
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
== END 2020-02-12 16:09 | disposition home health service (06) | DRG 460 ==
LOC: EC 18:21 → 2SICU 02-07 → EC 02-07 01:01 → 6NMEDSUR 02-11 15:46
PROVIDERS: ADMIT Orthopaedic Surgery; ATTEND Orthopaedic Surgery
PROC: 4A133B1 Monitoring of Arterial Pressure, Peripheral, Percutaneous Approach (ICD-10-PCS; 2020-02-07)
PROC: 02HV33Z Insertion of Infusion Device into Superior Vena Cava, Percutaneous Approach (ICD-10-PCS; 2020-02-07)
PROC: 4A133J1 Monitoring of Arterial Pulse, Peripheral, Percutaneous Approach (ICD-10-PCS; 2020-02-07)
PROC: 03HY32Z Insertion of Monitoring Device into Upper Artery, Percutaneous Approach (ICD-10-PCS; 2020-02-07)
PROC: 0SG3071 Fusion of Lumbosacral Joint with Autologous Tissue Substitute, Posterior Approach, Posterior Column, Open Approach (ICD-10-PCS; principal; 2020-02-07 11:40)
PROC: 01NB0ZZ Release Lumbar Nerve, Open Approach (ICD-10-PCS; principal; 2020-02-07 11:40)
PROC: 0QS004Z Reposition Lumbar Vertebra with Internal Fixation Device, Open Approach (ICD-10-PCS; principal; 2020-02-07 11:40)
PROC: 00QT0ZZ Repair Spinal Meninges, Open Approach (ICD-10-PCS; principal; 2020-02-07 11:40)
PROC: 0SG1071 Fusion of 2 or more Lumbar Vertebral Joints with Autologous Tissue Substitute, Posterior Approach, Posterior Column, Open Approach (ICD-10-PCS; principal; 2020-02-07 11:40)
PROC: 0SB20ZZ Excision of Lumbar Vertebral Disc, Open Approach (ICD-10-PCS; principal; 2020-02-07 11:40)
DX: S32.042A Unstable burst fracture of fourth lumbar vertebra, initial encounter for closed fracture (principal); S22.22XA Fracture of body of sternum, initial encounter for closed fracture; E87.1 Hypo-osmolality and hyponatremia; F10.231 Alcohol dependence with withdrawal delirium; S36.899A Unspecified injury of other intra-abdominal organs, initial encounter; G96.11 Dural tear; V47.5XXA Car driver injured in collision with fixed or stationary object in traffic accident, initial encounter; Y92.410 Unspecified street and highway as the place of occurrence of the external cause; F10.229 Alcohol dependence with intoxication, unspecified; K70.10 Alcoholic hepatitis without ascites; Y90.8 Blood alcohol level of 240 mg/100 ml or more; F17.210 Nicotine dependence, cigarettes, uncomplicated; Z71.6 Tobacco abuse counseling; I07.1 Rheumatic tricuspid insufficiency; I27.20 Pulmonary hypertension, unspecified; K70.30 Alcoholic cirrhosis of liver without ascites; D75.89 Other specified diseases of blood and blood-forming organs; E86.1 Hypovolemia; M48.061 Spinal stenosis, lumbar region without neurogenic claudication; R79.89 Other specified abnormal findings of blood chemistry; S01.119A Laceration without foreign body of unspecified eyelid and periocular area, initial encounter; S30.1XXA Contusion of abdominal wall, initial encounter; S32.039A Unspecified fracture of third lumbar vertebra, initial encounter for closed fracture; Z96.652 Presence of left artificial knee joint; F41.9 Anxiety disorder, unspecified; Z79.899 Other long term (current) drug therapy; R26.9 Unspecified abnormalities of gait and mobility; Z88.1 Allergy status to other antibiotic agents; Z88.0 Allergy status to penicillin; Z91.81 History of falling; K08.9 Disorder of teeth and supporting structures, unspecified
CPT/HCPCS: 36415; 70450; 71045; 71260; 72100; 72125; 72128; 72131; 72148; 74177; 80048; 80053; 80306; 80320; 81001; 84484; 85025; 85610; 85730; 86850; 86891; 86900; 86901; 86920; 87070; 93005; 93306; 96361; 96372; 96374; 99291